=== PATIENT | female | born 1980 | race Two or more races ===

== ENCOUNTER 2023-03-15 01:29 | Emergency (ER) | payer OTHER ==
[~2023-03-15] VITALS: Ht 165.1 cm; Wt 65.8 kg
[2023-03-15] MEDS ORDERED: PEPCID40 MG PO (08:07)
[2023-03-15] MEDS ORDERED: ONDANSETRON ODT4 MG PO (08:07)
[2023-03-15] MEDS ORDERED: INTESTINEX680 M2 PO (08:08)
== END 2023-03-15 08:26 ==
LOC: ER 01:29
DX: K52.89 Other specified noninfective gastroenteritis and colitis (principal); Z88.6 Allergy status to analgesic agent

== ENCOUNTER 2023-04-11 18:17 | Emergency (ER) | payer OTHER ==
[~2023-04-11] VITALS: Ht 162.6 cm; Wt 63.5 kg
[~2023-04-11 18:17] MED LIST: INTESTINEX680 M2 PO; ONDANSETRON ODT4 MG PO; PEPCID40 MG PO
[2023-04-12] MEDS ORDERED: PEPCID AC20 MG PO (00:15)
[2023-04-12] MEDS ORDERED: ONDANSETRON HCL4 MG PO (00:15)
== END 2023-04-12 00:30 | disposition home or self-care (01) ==
LOC: ER
PROVIDERS: Nurse Practitioner Family
DX: K29.70 Gastritis, unspecified, without bleeding (principal); R10.9 Unspecified abdominal pain; R11.10 Vomiting, unspecified; Z20.822 Contact with and (suspected) exposure to COVID-19